=== PATIENT | female | born 1970 | race Caucasian/White ===

== ENCOUNTER 2022-11-08 15:14 | Outpatient (CLI) | payer MEDICAID ==
--- NOTE | 2022-11-17 07:50 | XRAY Report ---
PROCEDURE: Foot 3 View LT INDICATIONS: L FOOT PX TECHNIQUE: 3 views of the foot were acquired. COMPARISON: None FINDINGS: Bones: No acute fractures or dislocations. Healed fifth metatarsal base fracture. No suspicious bony lesions. Mild hallux valgus alignment and medial bunion. Moderate first MTP and diffuse interphalan geal joint space narrowing with articular osteophyte formation. Prominent plantar calcaneal enthesoph yte. Soft tissues: No tibiotalar joint effusion. Achilles tendon appears normal. IMPRESSION: 1. No fracture or dislocation. 2. Moderate first MTP and mild diffuse interphalangeal joint degeneration. 3. Calcaneal enthesopathy. Reviewed by: PADMINI Hanna on 11/17/2022 7:49 AM PST Approved by: Elisa Helton MD on 11/17/2022 7:49 AM PST Station ID: [id number]
== END 2022-11-08 23:49 | disposition home or self-care (01) ==
LOC: DI.N 15:14
PROVIDERS: ATTEND Registered Nurse
DX: M19.072 Primary osteoarthritis, left ankle and foot (principal); M77.32 Calcaneal spur, left foot

== ENCOUNTER 2023-10-13 12:44 | Emergency (ER) | payer BC, MEDICAID ==
[2023-10-13 12:57] LABS: BASOPHILS # (AUTO) 0.1 10^3/uL (0.0-0.1); BASOPHILS % (AUTO) 0.6 %; EOSINOPHILS # (AUTO) 0.2 10^3/uL (0.0-0.7); EOSINOPHILS % (AUTO) 2.2 %; HCT - HEMATOCRIT 45.6 % (37.0-47.0); HGB - HEMOGLOBIN 14.2 g/dL (12.0-16.0); LYMPHOCYTES # (AUTO) 2.2 10^3/uL (1.5-3.5); MEAN CORPUSCULAR HEMOGLOBIN 28.4 pg (27.0-31.0); MEAN CORPUSCULAR HGB CONC 31.1 g/dL (32.0-36.0); MEAN CORPUSCULAR VOLUME 91.2 fL (81.0-99.0); MEAN PLATELET VOLUME 10.2 fL (7.9-10.8); MONOCYTES # (AUTO) 0.7 10^3/uL (0.0-1.0); MONOCYTES % (AUTO) 6.7 %; NEUTROPHILS # (AUTO) 6.9 10^3/uL (1.5-6.6); NEUTROPHILS % (AUTO) 68.2 %; PLT - PLATELET COUNT 293 10^3/uL (130-450); RED CELL DISTRIBUTION WIDTH 14.6 % (12.0-15.0)
[2023-10-13 13:14] VITALS: BP 145/122; O2SAT 97
[2023-10-13 13:18] LABS: ALBUMIN 4.2 g/dL (3.2-5.5); ALBUMIN/GLOBULIN RATIO 1.3 (1.0-2.2); BILIRUBIN,TOTAL 0.4 mg/dL (0.2-1.0); CALCIUM 9.4 mg/dL (8.5-10.3); CREATININE 0.7 mg/dL (0.6-1.3); TOTAL PROTEIN 7.5 g/dL (6.4-8.9)
[2023-10-13] MEDS ORDERED: KETOROLAC 30 MG/ML VIAL IVP STA (13:31)
--- NOTE | 2023-10-13 13:38 | ED Physician Documentation ---
History of Present Illness - Stated complaint Stated Complaint: ABD PX - Chief complaint Chief Complaint: Abd Pain - History obtained from History obtained from: Patient - History of Present Illness Timing: How many days ago (3) Pain level max: 6 Pain level now: 5 - Additonal information Additional information: 53-year-old female presents to the emergency department for left lower quadrant and lower abdominal pain for 3 days. Worse with having a bowel movement, nothing makes it better. She states she has been told she has diverticulosis in the past. Has never had a colonoscopy because she "refuses". No fevers. No chills. No nausea or vomiting. Went to the walk-in clinic and was sent here for evaluation. No vaginal bleeding or discharge. No blood in the stool. No recent travel. No recent antibiotics. Review of Systems Constitutional: denies: Fever, Chills Respiratory: denies: Cough GI: denies: Nausea, Vomiting, Bloody / black stool : denies: Dysuria, Frequency, Hesitancy PD PAST MEDICAL HISTORY - Past Medical History Past Medical History: Yes Cardiovascular: Hypertension Psych: Anxiety Musculoskeletal: Scoliosis, Chronic back pain Other Past Medical History: Knee replacements - Past Surgical History Past Surgical History: Yes General: Cholecystectomy - Present Medications Home Medications: Ambulatory Orders Medication Instructions Recorded Confirmed Amox/Clav 875/125 [Augmentin] 1 each PO Q8H #30 tablet 10/13/23 traMADol [Ultram] 50 - 100 mg PO Q6H PRN #20 tablet 10/13/23 - Allergies Allergies/Adverse Reactions: Allergies Allergy/AdvReac Type Severity Reaction Status Date / Time No Known Drug Allergies Allergy Verified 10/13/23 13:10 - Social History Does the pt smoke?: Yes Smoking Status: Current every day smoker PD ED PE NORMAL - Vitals Vital signs reviewed: Yes - General General: Alert and oriented X 3, No acute distress - HEENT HEENT: Moist mucous membranes - Neck Neck: Supple, no meningeal sign - Cardiac Cardiac: RRR, Strong equal pulses - Respiratory Respiratory: No respiratory distress, Clear bilaterally - Abdomen Abdomen: Soft, Non distended, Other (Tender palpation left lower quadrant. No peritoneal signs.) - Back Back: No CVA TTP, No spinal TTP - Derm Derm: Warm and dry - Extremities Extremities: No edema, No calf tenderness / cord - Neuro Neuro: Alert and oriented X 3 - Psych Psych: Normal mood, Normal affect Results - Vitals Vitals: Vital Signs - 24 hr 10/13/23 13:05 Temperature 36.7 C Heart Rate 82 Respiratory 18 Rate Blood Pressure 145/122 H O2 Saturation 97 Oxygen O2 Source Room air - Labs Labs: Laboratory Tests 10/13/23 10/13/23 12:54 12:54 WBC 10.0 RBC 5.00 Hgb 14.2 Hct 45.6 MCV 91.2 MCH 28.4 MCHC 31.1 L RDW 14.6 Plt Count 293 MPV 10.2 Neut # (Auto) 6.9 H Lymph # (Auto) 2.2 [place] # (Auto) 0.7 Eos # (Auto) 0.2 Baso # (Auto) 0.1 Absolute Nucleated RBC 0.00 Nucleated RBC % 0.0 Sodium 137 Potassium 4.0 Chloride 103 Carbon Dioxide 30 Anion Gap 4.0 L BUN 21 H Creatinine 0.7 Estimated GFR (MDRD) 87 L Glucose 107 H Calcium 9.4 Total Bilirubin 0.4 AST 12 ALT 10 Alkaline Phosphatase 102 Total Protein 7.5 Albumin 4.2 Globulin 3.3 Albumin/Globulin Ratio 1.3 Lipase 10 L - Rads (name of study) CT abdomen pelvis Relevant Findings:: Final report received, See rad report PD Medical Decision Making - ED course Complexity details: reviewed results, considered differential, d/w patient, d/w family ED course: 53-year-old female with what appears to be acute diverticulitis on CT scan. Discussed risks and benefits of antibiotics versus watchful waiting, patient elects antibiotics. We did discuss C. difficile as well. Patient is well- appearing, nontoxic. Afebrile. No prescribed pain medication for home as well. Patient counseled regarding signs and symptoms for which I believe and urgent re-evaluation would be necessary. Patient with good understanding of and agreement to plan and is comfortable going home at this time This document was made in part using voice recognition software. While efforts are made to proofread this document, sound alike and grammatical errors may occur. Departure - Departure Disposition: 01 Home, Self Care Clinical Impression: Diverticulitis Condition: Good Instructions: ED Diverticulitis Follow-Up: your,doctor in 1 week [Other] Prescriptions: Amox/Clav 875/125 [Augmentin] 1 each PO Q8H #30 tablet traMADol [Ultram] 50 - 100 mg PO Q6H PRN #20 tablet PRN Reason: back pain Comments: Your prescriptions were sent to [facility] in [place]. Please follow-up with your doctor for further care. Please return if you worsen. Your CT scan is consistent with acute diverticulitis today. It is recommended that you have a colonoscopy after resolution of your illness. Please return for increasing pain, fevers or other new or worrisome symptoms. I am prescribing a short course of narcotic pain medication for you. These are potentially dangerous and addictive medications that should be used carefully. These medications may constipate you. Take an bkbb-fha-[id number] stool softener (docusate) twice daily with plenty of water while taking these medications. If you go 24 hours without a bowel movement, take [id number] miralax, per package instructions. Do not drink or drive while taking these medications. If you received narcotic or sedating medications while in the emergency department, do not drive for 24 hours. Store this medication in a safe, secure place and out of reach of children. It is a violation of federal law to give or sell this medication to another person or to use in a manner other than prescribed. The ED will not refill narcotic prescriptions, including prescriptions lost or stolen. To dispose of unwanted medications: 1. [facility] at [address] in [place] has a medication drop box. They accept prescription medications (in pill form) Sunday through Sunday 9:00 a.m. to 5:00 p.m. 2. The [facility] at [place] [employer] accepts prescription medications (in pill form only) for disposal year round. Call for more information. 3. Contact the [facility] for the next [facility] sponsored prescription drug collection event. , [phone], or [phone]; PROCEDURE: ABDOMEN/PELVIS W INDICATIONS: LLQ abd pain CONTRAST: omnipaque 300 100ml TECHNIQUE: After the administration of IV contrast, 5 mm thick sections acquired from the diaphragms to the symphysis. 5 mm thick coronal and sagittal reformats were acquired. For radiation dose reduction, the following was used: automated exposure control, adjustment of mA and/or kV according to patient size. COMPARISON: None FINDINGS: Image quality: Excellent. Lung bases and heart: Unremarkable. Liver: No solid mass. Moderate hepatic steatosis is seen. Gallbladder and biliary tree: Surgically absent. No biliary dilation, accounting for post- cholecystectomy state. Spleen: No splenomegaly. Pancreas: No pancreatic ductal dilation. Adrenals: No adrenal nodule. Kidneys and ureters: No hydronephrosis. No renal cystic lesion which requires follow up. No solid mass. Bowel and peritoneum: There is no bowel obstruction. No gastric or small bowel wall thickening. Mild to moderate sigmoid diverticulosis is seen with mild wall thickening and pericolonic fat stranding involving mid sigmoid colon in left lower quadrant. No abscess collection. No free fluid or free air. Lymph nodes: No central or retroperitoneal adenopathy. Vessels: No infrarenal aortic aneurysm. PELVIS Reproductive organs: Unremarkable. Bladder: No abnormal wall thickening, accounting for underdistension. Pelvic lymph nodes: No pelvic adenopathy by size criteria. Bones: No aggressive osseous abnormality. Degenerative disc disease throughout lower thoracic and lumbar spine is seen. Other: No significant ventral or inguinal hernia. IMPRESSION: 1. Finding is suggestive of acute diverticulitis involving mid sigmoid colon in left lower quadrant. No abscess collection. No signs of perforation. 2. No bowel obstruction. No other area of abnormal bowel wall thickening. No free fluid or free air. 3. Moderate hepatic steatosis and hepatomegaly. No discrete hepatic lesion. Forms: PCP List
--- NOTE | 2023-10-13 14:51 | CT Report ---
PROCEDURE: ABDOMEN/PELVIS W INDICATIONS: LLQ abd pain CONTRAST: omnipaque 300 100ml TECHNIQUE: After the administration of IV contrast, 5 mm thick sections acquired from the diaphragms to the symp hysis. 5 mm thick coronal and sagittal reformats were acquired. For radiation dose reduction, the f ollowing was used: automated exposure control, adjustment of mA and/or kV according to patient size. COMPARISON: None FINDINGS: Image quality: Excellent. Lung bases and heart: Unremarkable. Liver: No solid mass. Moderate hepatic steatosis is seen. Gallbladder and biliary tree: Surgically absent. No biliary dilation, accounting for post-cholecystec susanna state. Spleen: No splenomegaly. Pancreas: No pancreatic ductal dilation. Adrenals: No adrenal nodule. Kidneys and ureters: No hydronephrosis. No renal cystic lesion which requires follow up. No solid mas s. Bowel and peritoneum: There is no bowel obstruction. No gastric or small bowel wall thickening. Mild to moderate sigmoid diverticulosis is seen with mild wall thickening and pericolonic fat stranding in volving mid sigmoid colon in left lower quadrant. No abscess collection. No free fluid or free air. Lymph nodes: No central or retroperitoneal adenopathy. Vessels: No infrarenal aortic aneurysm. PELVIS Reproductive organs: Unremarkable. Bladder: No abnormal wall thickening, accounting for underdistension. Pelvic lymph nodes: No pelvic adenopathy by size criteria. Bones: No aggressive osseous abnormality. Degenerative disc disease throughout lower thoracic and lum bar spine is seen. Other: No significant ventral or inguinal hernia. IMPRESSION: 1. Finding is suggestive of acute diverticulitis involving mid sigmoid colon in left lower quadrant. No abscess collection. No signs of perforation. 2. No bowel obstruction. No other area of abnormal bowel wall thickening. No free fluid or free air. 3. Moderate hepatic steatosis and hepatomegaly. No discrete hepatic lesion. Reviewed by: El Francis MD on 10/13/2023 2:49 PM PST Approved by: El Francis MD on 10/13/2023 2:49 PM PST Station ID: [id number]
[2023-10-13] MEDS ORDERED: iohexoL-300 100 ML VIAL IVP ONE (18:08)
== END 2023-10-13 15:31 | disposition home or self-care (01) ==
LOC: ED 12:44
DX: K57.32 Diverticulitis of large intestine without perforation or abscess without bleeding (principal); F17.200 Nicotine dependence, unspecified, uncomplicated
CPT/HCPCS: 36415; 74177; 80053; 83690; 85025; 96374; 99283; 99284; Q9967

== ENCOUNTER 2024-03-14 16:49 | Emergency (ER) | payer BC ==
[2024-03-14 17:04] VITALS: O2SAT 98
[2024-03-14 17:43] LABS: BASOPHILS # (AUTO) 0.1 10^3/uL (0.0-0.1); BASOPHILS % (AUTO) 0.6 %; EOSINOPHILS # (AUTO) 0.1 10^3/uL (0.0-0.7); EOSINOPHILS % (AUTO) 1.4 %; LYMPHOCYTES # (AUTO) 1.4 10^3/uL (1.5-3.5); LYMPHOCYTES % (AUTO) 15.6 %; MEAN CORPUSCULAR HEMOGLOBIN 28.1 pg (27.0-31.0); MEAN CORPUSCULAR HGB CONC 31.8 g/dL (32.0-36.0); MEAN CORPUSCULAR VOLUME 88.4 fL (81.0-99.0); MEAN PLATELET VOLUME 10.3 fL (7.9-10.8); MONOCYTES # (AUTO) 0.5 10^3/uL (0.0-1.0); MONOCYTES % (AUTO) 5.3 %; NEUTROPHILS # (AUTO) 7.1 10^3/uL (1.5-6.6); NEUTROPHILS % (AUTO) 76.8 %; PLT - PLATELET COUNT 285 10^3/uL (130-450); RED BLOOD COUNT 4.98 10^6/uL (4.20-5.40); RED CELL DISTRIBUTION WIDTH 14.8 % (12.0-15.0); WHITE BLOOD COUNT 9.3 x10^3/uL (4.8-10.8)
[2024-03-14 18:09] LABS: ALBUMIN 4.2 g/dL (3.2-5.5); ALBUMIN/GLOBULIN RATIO 1.3 (1.0-2.2); BILIRUBIN,TOTAL 0.5 mg/dL (0.2-1.0); CALCIUM 9.8 mg/dL (8.5-10.3); CREATININE 0.9 mg/dL (0.6-1.3); POTASSIUM 3.9 mmol/L (3.5-4.5); TOTAL PROTEIN 7.5 g/dL (6.4-8.9)
[2024-03-14] MEDS: ONDANSETRON 4 MG/2 ML VIAL IVP STA (19:28)
[2024-03-14] MEDS: SODIUM CHLORIDE 0.9% 1,000 ML IV STA (19:28)
[2024-03-14 19:37] VITALS: BP 155/90
--- NOTE | 2024-03-14 19:57 | ED Physician Documentation ---
History of Present Illness - Stated complaint Stated Complaint: VOMIT/DIARRHEA - Chief complaint Chief Complaint: Abd Pain - History obtained from History obtained from: Patient - History of Present Illness Timing: Today Pain level max: 4 Pain level now: 0 - Additonal information Additional information: Patient is a 53-year-old female who presents to the emergency department nausea, vomiting, diarrhea. She states that this started earlier today while at work. No fevers. No chills. Does not think she was exposed to any bad food. She has had a history of diverticulitis in the past but states she does not have any abdominal pain now and this does not feel similar to her diverticulitis. She states that she was feeling well and then began to have diarrhea and vomiting. She states no vomiting for the past hour or so. She states now she just feels tired. No recent travel. No drinking from streams. Review of Systems Constitutional: denies: Fever, Chills Cardiac: denies: Palpitations Respiratory: denies: Dyspnea, Cough GI: reports: Nausea, Vomiting, Diarrhea. denies: Hematemesis, Bloody / black stool Skin: denies: Rash Musculoskeletal: denies: Neck pain, Back pain Neurologic: denies: Headache PD PAST MEDICAL HISTORY - Past Medical History Past Medical History: Yes Cardiovascular: Hypertension GI: GERD Psych: Anxiety Musculoskeletal: Scoliosis, Chronic back pain - Past Surgical History Past Surgical History: Yes General: Cholecystectomy - Present Medications Home Medications: Ambulatory Orders Medication Instructions Recorded Confirmed Amox/Clav 875/125 [Augmentin] 1 each PO Q8H #30 tablet 10/13/23 traMADol [Ultram] 50 - 100 mg PO Q6H PRN #20 tablet 10/13/23 Ondansetron Odt [Zofran] 4 mg TL Q6H PRN #10 tablet 03/14/24 - Allergies Allergies/Adverse Reactions: Allergies Allergy/AdvReac Type Severity Reaction Status Date / Time No Known Drug Allergies Allergy Verified 03/14/24 16:57 - Social History Does the pt smoke?: Yes Smoking Status: Current every day smoker Does the pt drink ETOH?: No Does the pt have substance abuse?: No - Immunizations Immunizations are current?: Yes - POLST Patient has POLST: No PD ED PE NORMAL - Vitals Vital signs reviewed: Yes - General General: Alert and oriented X 3, No acute distress - HEENT HEENT: Moist mucous membranes - Neck Neck: Supple, no meningeal sign - Cardiac Cardiac: RRR, Strong equal pulses - Respiratory Respiratory: No respiratory distress, Clear bilaterally - Abdomen Abdomen: Soft, Non tender, Non distended - Derm Derm: Warm and dry - Extremities Extremities: No edema - Neuro Neuro: Alert and oriented X 3 - Psych Psych: Normal mood, Normal affect Results - Vitals Vitals: Vital Signs - 24 hr 03/14/24 03/14/24 16:57 19:31 Temperature 36.5 C Heart Rate 86 82 Respiratory 16 18 Rate Blood Pressure 160/100 H 155/90 H O2 Saturation 98 98 Oxygen O2 Source Room air - Labs Labs: Laboratory Tests 03/14/24 03/14/24 17:12 17:12 WBC 9.3 RBC 4.98 Hgb 14.0 Hct 44.0 MCV 88.4 MCH 28.1 MCHC 31.8 L RDW 14.8 Plt Count 285 MPV 10.3 Neut # (Auto) 7.1 H Lymph # (Auto) 1.4 L [place] # (Auto) 0.5 Eos # (Auto) 0.1 Baso # (Auto) 0.1 Absolute Nucleated RBC 0.00 Nucleated RBC % 0.0 Sodium 138 Potassium 3.9 Chloride 104 Carbon Dioxide 27 Anion Gap 7.0 BUN 20 Creatinine 0.9 Estimated GFR (MDRD) 65 L Glucose 111 H Calcium 9.8 Total Bilirubin 0.5 AST 16 ALT 12 Alkaline Phosphatase 91 Total Protein 7.5 Albumin 4.2 Globulin 3.3 Albumin/Globulin Ratio 1.3 Lipase 10 L PD Medical Decision Making - ED course Complexity details: reviewed results, re-evaluated patient, considered differential, d/w patient ED course: Patient is well-appearing, nontoxic. Afebrile. Tolerating p.o. without d ifficulty after Zofran. Given IV fluids. Abdomen is soft, nontender nondistended. No evidence of diverticulitis, perforation, abscess. Symptoms appear consistent with a viral gastroenteritis versus food poisoning. No indication for CT scan at this time. Will prescribe Zofran for home and continue supportive care. Patient counseled regarding signs and symptoms for which I believe and urgent re-evaluation would be necessary. Patient with good understanding of and agreement to plan and is comfortable going home at this time This document was made in part using voice recognition software. While efforts are made to proofread this document, sound alike and grammatical errors may occur. Departure - Departure Disposition: 01 Home, Self Care Clinical Impression: Viral gastroenteritis Condition: Good Instructions: ED Gastroenteritis Viral Follow-Up: your,doctor as needed [Other] Prescriptions: Ondansetron Odt [Zofran] 4 mg TL Q6H PRN #10 tablet PRN Reason: Nausea / Vomiting Comments: Your prescription was sent to [facility] in [place]. Please follow-up with your doctor for further care. Please drink plenty of fluids and rest. You appear to have a viral gastroenteritis today. This is usually a self-limited illness that normally resolves in 24 to 72 hours. Forms: PCP List, Activity restrictions Discharge Date/Time: 03/14/24 20:08
== END 2024-03-14 20:08 | disposition home or self-care (01) ==
LOC: ED 16:49
DX: A08.4 Viral intestinal infection, unspecified (principal); F17.200 Nicotine dependence, unspecified, uncomplicated
CPT/HCPCS: 36415; 80053; 83690; 85025; 96374; 99283